=== PATIENT | female | born 1965 | race Caucasian/White ===

== ENCOUNTER 2023-03-03 11:11 | Emergency (ER) | payer OTHER ==
[~2023-03-03] VITALS: Ht 170.2 cm; Wt 89.8 kg
[2023-03-03 13:00] VITALS: BP 130/70
== END 2023-03-03 14:52 | disposition home or self-care (01) ==
LOC: ED 11:11
DX: I82.811 Embolism and thrombosis of superficial veins of right lower extremity (principal)
CPT/HCPCS: 93971; 99283-25

== ENCOUNTER 2024-07-04 12:56 | Emergency (ER) | payer OTHER ==
[~2024-07-04] VITALS: Ht 170.2 cm; Wt 79.7 kg
--- OUTSIDE RECORDS SUMMARY | 2024-07-04 13:03 | XMS ---
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 - Patient eloped before treatment completed. - Patient with suicidal and/or homicidal ideations eloped. Details: Patient left AMA. CRITERIA MET - Group Notification CARE PROVIDERS There are no care providers on record at this time. Dian has no Care Guidelines for this patient. ERosa M VISIT COUNT (12 MO.) 2 [facility]. TOTAL 2 NOTE: Visits indicate total known visits. ED/C VISIT TRACKING (12 MO.) 07/04/2024 12:57 [facility] TYPE: Emergency COMPLAINT: - RT EYE VISUAL PROBLEMS 11/07/2023 20:47 [facility] TYPE: Emergency COMPLAINT: - CHEST PAIN DIAGNOSES: - Chronic obstructive pulmonary disease, unspecified - Other chest pain - Presence of cardiac and vascular implant and graft, unspecified INPATIENT VISIT TRACKING (12 MO.) No inpatient visits to display in this time frame [email or web address]
[2024-07-04] MEDS ORDERED: CHILDREN'S ASPI81 M1 PO (13:15)
[2024-07-04 14:19] VITALS: BP 134/87
== END 2024-07-04 14:14 | disposition home or self-care (01) ==
LOC: ED 12:56
DX: H53.8 Other visual disturbances (principal); J44.9 Chronic obstructive pulmonary disease, unspecified; Z95.5 Presence of coronary angioplasty implant and graft; Z79.82 Long term (current) use of aspirin
CPT/HCPCS: 99283